=== PATIENT | male | born 1965 | race Caucasian/White ===

== ENCOUNTER 2017-01-27 11:52 | Emergency (ER) | payer BC ==
[2017-01-27] MEDS ORDERED: Ketorolac 60 MG/2 ML SDV IM ONE (12:17)
[2017-01-27] MEDS ORDERED: Sodium Chloride 0.9% 10 ML Syringe FLUSH PRN (12:28)
[2017-01-27] MEDS ORDERED: Ondansetron 4 MG/2 ML SDV IVPUSH ONE (12:28)
--- NOTE | 2017-01-27 13:36 | EDM.PDOC ---
ED HPI GENERAL MEDICAL PROBLEM - General Chief Complaint: Flank Pain Stated Complaint: SEVERE RIGHT FLANK PAIN Time Seen by Provider: 01/27/17 13:03 Source of Information: Reports: Patient, Family, RN Notes Reviewed History Limitations: Reports: No Limitations - History of Present Illness INITIAL COMMENTS - FREE TEXT/NARRATIVE: 51-year-old gentleman presents emergency department today complaint of right flank pain, he recently underwent CT scan 3 days prior which shows punctate stones in the right kidney nonobstructing with an enlarged head of the pancreas of unclear etiology, also of note proximally 2 weeks ago presented to his primary care with jaundice and brown colored urine workup revealed a normal CBC , bilirubin elevated at 11 and markedly elevated liver enzymes hepatitis B and a were negative remainder the panel is pending Right Flank Pain Score (Numeric/FACES): 9 - Related Data Allergies Allergy/AdvReac Type Severity Reaction Status Date / Time No Known Allergies Allergy Verified 01/27/17 12:08 Home Meds: Home Meds Multivitamin [Multi-Vitamin Daily] 1 each PO DAILY 04/04/13 [History] Past Medical History Gastrointestinal History: Reports: Other (See Below) Other Gastrointestinal History: uclerative colitis Genitourinary History: Reports: Renal Calculus Other Genitourinary History: 1992 - Past Surgical History GI Surgical History: Reports: Colonoscopy, Other (See Below) Other GI Surgeries/Procedures: COLON REMOVAL 2013. J pouch Social & Family History - Tobacco Use Smoking Status *Q: Never Smoker - Caffeine Use Caffeine Use: Reports: None - Alcohol Use Days Per Week of Alcohol Use: 0 - Recreational Drug Use Recreational Drug Use: No ED ROS GENERAL - Review of Systems Review Of Systems: See Below Constitutional: Reports: No Symptoms HEENT: Reports: No Symptoms Respiratory: Reports: No Symptoms Cardiovascular: Reports: No Symptoms GI/Abdominal: Reports: Nausea, Vomiting : Reports: Flank Pain, Other (Brown colored urine) Musculoskeletal: Reports: No Symptoms Skin: Reports: Jaundice ED EXAM, GI/ABD - Physical Exam Exam: See Below Exam Limited By: No Limitations General Appearance: Alert, WD/WN, No Apparent Distress Eyes: Bilateral: Normal Appearance (Yellow sclera) Ears: Normal External Exam, Normal Canal, Hearing Grossly Normal, Normal TMs Nose: Normal Inspection, Normal Mucosa, No Blood Throat/Mouth: Normal Inspection, Normal Lips, Normal Teeth, Normal Gums, Normal Oropharynx, Normal Voice, No Airway Compromise Head: Atraumatic, Normocephalic Neck: Normal Inspection, Supple, Non-Tender, Full Range of Motion Respiratory/Chest: No Respiratory Distress, Lungs Clear, Normal Breath Sounds, No Accessory Muscle Use, Chest Non-Tender Cardiovascular: Regular Rate, Rhythm, No Murmur GI/Abdominal Exam: Soft, Non-Tender Skin Exam: Jaundice Course - Vital Signs Last Recorded V/S: Last Vital Signs Temp 94.1 F L 01/27/17 12:10 Pulse 70 01/27/17 13:33 Resp 16 01/27/17 13:33 BP 123/74 01/27/17 13:33 Pulse Ox 100 01/27/17 13:33 - Orders/Labs/Meds Orders: Active Orders 24 hr Category Date Time Status Peripheral IV Care [RC] . DIRECTED Care 01/27/17 12:28 Active HEPATITIS C ANTIBODY [REF] Stat Lab 01/27/17 14:53 Ordered MONONUCLEOSIS SCREEN [CHEM] Stat Lab 01/27/17 14:53 Ordered Iopamidol [Isovue-300 (61%)] Med 01/27/17 14:03 Active 100 ml IV . DIRECTED PRN Sodium Chloride 0.9% [Normal Saline] 1,000 ml Med 01/27/17 13:45 Active IV ASDIRECTED Sodium Chloride 0.9% [Normal Saline] 77 ml Med 01/27/17 14:15 Active IV ASDIRECTED Sodium Chloride 0.9% [Saline Flush] Med 01/27/17 12:28 Active 10 ml FLUSH ASDIRECTED PRN Peripheral IV Insertion Adult [OM.PC] Urgent Oth 01/27/17 12:28 Ordered Medication Orders Sodium Chloride (Normal Saline) 1,000 mls @ 500 mls/hr IV ASDIRECTED CHAD Last Admin: 01/27/17 13:39 Dose: 500 mls/hr Sodium Chloride (Normal Saline) 77 mls @ 3.5 mls/sec IV ASDIRECTED CHAD Last Admin: 01/27/17 14:06 Dose: 3.5 mls/sec Iopamidol (Isovue-300 (61%)) 100 ml IV . DIRECTED PRN PRN Reason: RADIOLOGY EXAM Stop: 01/28/17 14:04 Last Admin: 01/27/17 14:06 Dose: 100 ml Sodium Chloride (Saline Flush) 10 ml FLUSH ASDIRECTED PRN PRN Reason: Keep Vein Open Last Admin: 01/27/17 13:39 Dose: 10 ml Labs: Laboratory Tests 01/27/17 01/27/17 01/27/17 Range/Units 12:23 13:41 13:41 WBC 6.1 (4.5-11.0) K/uL RBC 4.30 (4.30-5.90) M/uL Hgb 13.1 (12.0-15.0) g/dL Hct 40.1 (40.0-54.0) % MCV 93 (80-98) fL MCH 31 (27-31) pg MCHC 33 (32-36) % Plt Count 342 (150-400) K/uL Neut % (Auto) 44 (36-66) % Lymph % (Auto) 17 L (24-44) % [place] % (Auto) 20 H (2-6) % Eos % (Auto) 16 H (2-4) % Baso % (Auto) 3 H (0-1) % PT (9.5-12.0) sec INR (0.80-1.20) Sodium 136 L (140-148) mmol/L Potassium 4.4 (3.6-5.2) mmol/L Chloride 102 (100-108) mmol/L Carbon Dioxide 29 (21-32) mmol/L Anion Gap 9.4 (5.0-14.0) mmol/L BUN 11 (7-18) mg/dL Creatinine 1.1 (0.8-1.3) mg/dL Est Cr Clr Drug Dosing 78.67 mL/min Estimated GFR (MDRD) > 60 (>60) Glucose 91 (74-106) mg/dL Calcium 9.0 (8.5-10.1) mg/dL Total Bilirubin 6.9 H (0.2-1.0) mg/dL AST 629 H (15-37) U/L ALT 1762 H (12-78) U/L Alkaline Phosphatase 395 H (46-116) U/L Total Protein 7.2 (6.4-8.2) g/dL Albumin 3.0 L (3.4-5.0) g/dL Globulin 4.2 H (2.3-3.5) g/dL Albumin/Globulin Ratio 0.7 L (1.2-2.2) Urine Color Yellow Urine Appearance Cloudy Urine pH 5.0 (4.5-8.0) Ur Specific [place] 1.025 (1.008-1.030) Urine Protein Trace (NEGATIVE) mg/dL Urine Glucose (UA) Normal (NEGATIVE) mg/dL Urine Ketones Negative (NEGATIVE) mg/dL Urine Occult Blood Negative (NEGATIVE) Urine Nitrite Negative (NEGAITVE) Urine Bilirubin Moderate (NEGATIVE) Urine Urobilinogen 1 (NORMAL) mg/dL Ur Leukocyte Esterase Small (NEGATIVE) Urine RBC 0-5 (0-5) Urine WBC 0-5 (0-5) Ur Epithelial Cells Not seen Amorphous Sediment Rare Urine Bacteria Rare Urine Mucus Rare Urine Other See note 01/27/17 Range/Units 13:41 WBC (4.5-11.0) K/uL RBC (4.30-5.90) M/uL Hgb (12.0-15.0) g/dL Hct (40.0-54.0) % MCV (80-98) fL MCH (27-31) pg MCHC (32-36) % Plt Count (150-400) K/uL Neut % (Auto) (36-66) % Lymph % (Auto) (24-44) % [place] % (Auto) (2-6) % Eos % (Auto) (2-4) % Baso % (Auto) (0-1) % PT 12.3 H (9.5-12.0) sec INR 1.14 (0.80-1.20) Sodium (140-148) mmol/L Potassium (3.6-5.2) mmol/L Chloride (100-108) mmol/L Carbon Dioxide (21-32) mmol/L Anion Gap (5.0-14.0) mmol/L BUN (7-18) mg/dL Creatinine (0.8-1.3) mg/dL Est Cr Clr Drug Dosing mL/min Estimated GFR (MDRD) (>60) Glucose (74-106) mg/dL Calcium (8.5-10.1) mg/dL Total Bilirubin (0.2-1.0) mg/dL AST (15-37) U/L ALT (12-78) U/L Alkaline Phosphatase (46-116) U/L Total Protein (6.4-8.2) g/dL Albumin (3.4-5.0) g/dL Globulin (2.3-3.5) g/dL Albumin/Globulin Ratio (1.2-2.2) Urine Color Urine Appearance Urine pH (4.5-8.0) Ur Specific [place] (1.008-1.030) Urine Protein (NEGATIVE) mg/dL Urine Glucose (UA) (NEGATIVE) mg/dL Urine Ketones (NEGATIVE) mg/dL Urine Occult Blood (NEGATIVE) Urine Nitrite (NEGAITVE) Urine Bilirubin (NEGATIVE) Urine Urobilinogen (NORMAL) mg/dL Ur Leukocyte Esterase (NEGATIVE) Urine RBC (0-5) Urine WBC (0-5) Ur Epithelial Cells Amorphous Sediment Urine Bacteria Urine Mucus Urine Other Meds: Medications Generic Name Dose Route Start Last Admin Trade Name Vikki PRN Reason Stop Dose Admin Sodium Chloride 1,000 mls @ 500 mls/hr 01/27/17 13:45 01/27/17 13:39 Normal Saline IV 500 mls/hr ASDIRECTED CHAD Administration Sodium Chloride 77 mls @ 3.5 mls/sec 01/27/17 14:15 01/27/17 14:06 Normal Saline IV 3.5 mls/sec ASDIRECTED CHAD Administration Iopamidol 100 ml 01/27/17 14:03 01/27/17 14:06 Isovue-300 (61%) IV 01/28/17 14:04 100 ml . DIRECTED PRN Administration RADIOLOGY EXAM Sodium Chloride 10 ml 01/27/17 12:28 01/27/17 13:39 Saline Flush FLUSH 10 ml ASDIRECTED PRN Administration Keep Vein Open Discontinued Medications Generic Name Dose Route Start Last Admin Trade Name Freq PRN Reason Stop Dose Admin Hydromorphone HCl 0.5 mg 01/27/17 14:54 Dilaudid IVPUSH 01/27/17 14:55 ONETIME ONE Ketorolac Tromethamine 60 mg 01/27/17 12:17 01/27/17 12:25 Toradol IM 01/27/17 12:18 60 mg ONETIME ONE Administration Ondansetron HCl 4 mg 01/27/17 12:28 01/27/17 12:43 Zofran IVPUSH 01/27/17 12:29 4 mg ONETIME ONE Administration Departure - Departure Time of Disposition: 15:00 Disposition: Home, Self-Care 01 Condition: Good Clinical Impression: Right flank pain - Discharge Information Referrals: PCP,None [Primary Care Provider] - Forms: ED Department Discharge Additional Instructions: Use Toradol as needed for pain control, use hydrocodone as needed for breakthrough pain please keep your follow-up appointment with Basia Neo on February 03 for further evaluation, call return to the emergency department worsening of symptoms - My Orders Last 24 Hours: My Active Orders 01/27/17 12:28 Peripheral IV Care [RC] . DIRECTED Sodium Chloride 0.9% [Saline Flush] 10 ml FLUSH ASDIRECTED PRN Peripheral IV Insertion Adult [OM.PC] Urgent 01/27/17 13:45 Sodium Chloride 0.9% [Normal Saline] 1,000 ml IV ASDIRECTED 01/27/17 14:03 Iopamidol [Isovue-300 (61%)] 100 ml IV . DIRECTED PRN 01/27/17 14:15 Sodium Chloride 0.9% [Normal Saline] 77 ml IV ASDIRECTED 01/27/17 14:53 HEPATITIS C ANTIBODY [REF] Stat MONONUCLEOSIS SCREEN [CHEM] Stat - Assessment/Plan Last 24 Hours: My Active Orders 01/27/17 12:28 Peripheral IV Care [RC] . DIRECTED Sodium Chloride 0.9% [Saline Flush] 10 ml FLUSH ASDIRECTED PRN Peripheral IV Insertion Adult [OM.PC] Urgent 01/27/17 13:45 Sodium Chloride 0.9% [Normal Saline] 1,000 ml IV ASDIRECTED 01/27/17 14:03 Iopamidol [Isovue-300 (61%)] 100 ml IV . DIRECTED PRN 01/27/17 14:15 Sodium Chloride 0.9% [Normal Saline] 77 ml IV ASDIRECTED 01/27/17 14:53 HEPATITIS C ANTIBODY [REF] Stat MONONUCLEOSIS SCREEN [CHEM] Stat Plan: Assessment Acuity = acute Site and laterality = jaundice, with right-sided flank pain Etiology = [jaundice of unclear etiology right sided flank pain possibly related to nephrolithiasis right side Manifestations = none Location of injury = Home Lab values = total bilirubin elevated 6.9 consistent hyperbilirubinemia AST elevated 624 AO T elevated 1762 consistent with elevated liver enzymes alkaline phosphatase elevated 395 albumin low at 3.0 consistent with hypoalbuminemia urinalysis reveals moderate bilirubin CT scan of the pancreas shows mildly enlarged head but no definite abnormality noted Plan I did discussed case with his primary care team as well as review labs and CT scan results with him plan is to check a Monospot and hepatitis C he will follow -up with his primary care team in 1 week he was given pain medication at Toradol 10 mg by mouth 3 times a day when necessary total #20, and hydrocodone 5 /325 one tab by mouth 3 times a day when necessary total #10 Patient was in agreement with the plan all questions were answered, they were instructed to return to the emergency department or call for worsening symptoms. This note was dictated using [employer] voice recognition software please call with any questions.
[2017-01-27] MEDS ORDERED: Sodium Chloride 0.9% 1,000 ML IV SCH (13:45)
[2017-01-27] MEDS ORDERED: Iopamidol 612 MG/ML 100 ML Bottle IV PRN (14:03)
--- NOTE | 2017-01-27 14:27 | CT ---
Abdomen w wo Cont Total DLP 319 mGycm. INDICATION: Head of pancreas. COMPARISON: CT 01/24/2017. FINDINGS: Enlargement of the pancreatic head, but no definitive evidence for pancreatic mass. Mild pe riportal edema is nonspecific. No adenopathy. No worrisome osseous lesions. Exam otherwise unremarkab le. IMPRESSION: Enlargement of the pancreatic head, but no definitive evidence for pancreatic mass. Mild periportal edema is nonspecific.
[2017-01-27] MEDS ORDERED: HYDROmorphone 0.5 MG/0.5 ML Syringe IVPUSH ONE (14:54)
== END 2017-01-27 15:24 | disposition home or self-care (01) ==
LOC: JP.ED 11:52
DX: R10.9 Unspecified abdominal pain (principal); R17 Unspecified jaundice; N20.0 Calculus of kidney
CPT/HCPCS: 36415; 74170; 80053; 81001; 85025; 85610; 86308; 86803; 96361; 96372; 96374; 99284; J1170; J1885; J2405; J7030; J7040; J7050; Q9967

== ENCOUNTER 2018-04-13 06:19 | Day surgery (SDC) | payer OTHER ==
[2018-04-13] MEDS ORDERED: Acetaminophen 500 MG Tab PO ONE (06:30)
[2018-04-13] MEDS ORDERED: Lidocaine 1% with EPINEPHrine 1:100,000 50 ML MDV ONE (06:41)
[2018-04-13] MEDS ORDERED: Bupivacaine 0.5% 50 ML MDV ONE (06:41)
[2018-04-13] MEDS ORDERED: Dextrose 5%-Lactated Ringers 1,000 ML IV SCH (07:00)
[2018-04-13] MEDS ORDERED: Propofol 200 MG/20 ML SDV ONE ×3 (07:03→08:30)
[2018-04-13] MEDS ORDERED: fentaNYL 100 MCG/2 ML SDV ONE (07:03)
[2018-04-13] MEDS ORDERED: Midazolam 1 MG/ML 2 ML SDV ONE (07:03)
[2018-04-13] MEDS ORDERED: ceFAZolin 2 GM in Premix Bag 1 BAG IV ONE (07:45)
[2018-04-13] MEDS ORDERED: Ketorolac 60 MG/2 ML SDV IM ONE (09:17)
--- NOTE | 2018-04-17 11:15 | OR ---
DATE OF PROCEDURE: 04/13/2018 PREOPERATIVE DIAGNOSIS: Symptomatic left varicocele. POSTOPERATIVE DIAGNOSES: 1. Symptomatic left varicocele. 2. Small direct left inguinal hernia. 3. Left ilioinguinal nerve and genital branch of genitofemoral nerve at risk for scar entrapment. PROCEDURES: Left inguinal exploration with: 1. Varicocelectomy with concurrent repair of direct left inguinal hernia (28718). 2. Excision of a portion of the genital branch of the genitofemoral nerve (39270). 3. Excision of portion of left ilioinguinal nerve (22918). ANESTHESIA: Local plus IV sedation. ASSISTANTS: Zoraida Curran PA-C, and PEARL Reyes INDICATIONS FOR PROCEDURE: This is a 52-year-old male presenting with symptomatic left varicocele. The plan was to proceed with a varicocelectomy. To minimize problems with postoperative pain, we would also most likely plan to divide the genital branch of the genitofemoral nerve along with the ilioinguinal nerve on that side which would decrease the likelihood of him having persistent pain postoperatively, and he is aware that this would result in an area of some anesthesia in the scrotum and in the area around the inguinal incision. The potential risks otherwise including bleeding, infection, ischemia to the testicle, chronic pain persisting postoperatively were all reviewed, and the patient wishes to proceed. DETAILS OF PROCEDURE: The patient was taken to the operating room and after IV sedation was administered, the abdomen and groin areas were prepped and draped. The left inguinal area was then anesthetized with 1% lidocaine mixed with Marcaine. A standard left inguinal incision was made and carried down through the skin and subcutaneous tissue and through the external oblique aponeurosis. The cord structures were noted to be somewhat boggy and had quite distended venous plexus. Upon elevation of the cord structures, the patient was also noted to have a small direct inguinal hernia. At this point, the cremasteric muscle fibers were divided. The vas and the testicular artery were identified, the latter being confirmed by means of Doppler exam. The venous branches at the level of the internal ring were then sequentially divided and tied with 4-0 Vicryl ties. At that point, there appeared to be no further venous branches noted. The cremasteric vein at the external ring was then also identified and likewise divided and tied with 4-0 Vicryl ties. What appeared to be the genital branch of the genitofemoral nerve could be then identified in the posterior aspect of the cord structures. A portion of this was excised, as was the ilioinguinal nerve; these being accomplished with electrocautery. At this point, the size of the inguinal hernia led us to decide repair of this with a Bassini-type repair rather than mesh as the latter might be associated with some persistent pain leading to inflammatory response. The conjoint tendon was then sutured down to the shelving portion of the inguinal ligament beginning at the level of pubic tubercle and then extending laterally to the point where the cord structures were approximated reasonably snugly around the newly formed internal ring. At that point, no further problems were noted. The external oblique aponeurosis was approximated with some 4-0 Vicryl stitch as was the Muriel's fascia, and the skin closed with 4-0 Vicryl subcuticular stitch. Dressing was applied. The patient was taken to the recovery room in satisfactory condition. Physician payroll assistant, Zoradia Curran, played an essential role in assisting in this case, helping to position the patient and retract structures as needed as well as suturing and cutting sutures when indicated. Her presence improved patient safety and decreased the operative time. Paulo Boland MD /[id number]
== END 2018-04-13 11:26 | disposition home or self-care (01) ==
LOC: JP.SDS 06:19
PROVIDERS: ATTEND Surgery
DX: I86.1 Scrotal varices (principal); K40.90 Unilateral inguinal hernia, without obstruction or gangrene, not specified as recurrent; G57.82 Other specified mononeuropathies of left lower limb
CPT/HCPCS: 55540; 64790; A9270; J0690; J1885; J2250; J2704; J3010; J3490; J7042

== ENCOUNTER 2018-09-13 09:17 | Emergency (ER) | payer OTHER ==
--- NOTE | 2018-09-13 10:07 | EDM.PDOC ---
ED HPI GENERAL MEDICAL PROBLEM - General Chief Complaint: General Stated Complaint: HEAVINESS IN CHEST, SOB Time Seen by Provider: 09/13/18 09:50 Source of Information: Reports: Patient, Old Records, RN History Limitations: Reports: No Limitations - History of Present Illness INITIAL COMMENTS - FREE TEXT/NARRATIVE: 53 yo male presents with exertional chest tightness over the past week or so. He has no hx of CAD, but his mother developed heart dz at about age 70. He is not aware of his cholesterol status. He is a never smoker and has no diabetes. He does not have uncontrolled HTN. In addition, he has a hx of ulcerative colitis and has had his colon removed. Over the past 3+ weeks he has had persistent gassiness, bloating, loose stools, and decreased appetite. He has noticed about a 17# weight loss over this interval. No black or bloody stools. No nausea or vomiting. In the beginning he thought he had a virus. Onset: Gradual Onset Date: 08/21/18 Duration: Week(s): (3+), Getting Worse Location: Reports: Chest, Abdomen Quality: Reports: Pressure (mild chest pressure mainly with exertion. ) Severity: Mild Improves with: Reports: Rest Worsens with: Reports: Movement (exertion) Context: Reports: Other (see HPI) Associated Symptoms: Reports: Chest Pain (mild exertional tightness), Loss of Appetite, Other (weight loss). 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: Reports: Other (see below) (none) chest Pain Score (Numeric/FACES): 1 - Related Data Allergies Allergy/AdvReac Type Severity Reaction Status Date / Time No Known Allergies Allergy Verified 09/13/18 09:25 Home Meds: Home Meds Multivitamin [Multi-Vitamin Daily] 1 each PO DAILY 04/04/13 [History] Ursodiol 500 mg PO BID 04/11/18 [History] Past Medical History HEENT History: Reports: Impaired Vision Gastrointestinal History: Reports: Other (See Below) Other Gastrointestinal History: uclerative colitis Genitourinary History: Reports: Renal Calculus Other Genitourinary History: 1992 - Infectious Disease History Infectious Disease History: Reports: Chicken Pox - Past Surgical History GI Surgical History: Reports: Colonoscopy, Other (See Below) Other GI Surgeries/Procedures: COLON REMOVAL 2014 liver PSC. J pouch Social & Family History - Family History Family Medical History: Noncontributory - Tobacco Use Smoking Status *Q: Never Smoker Second Hand Smoke Exposure: No - Caffeine Use Caffeine Use: Reports: Tea - Recreational Drug Use Recreational Drug Use: No ED ROS GENERAL - Review of Systems Review Of Systems: See Below Constitutional: Reports: Decreased Appetite, Weight Loss HEENT: Reports: No Symptoms Respiratory: Reports: No Symptoms Cardiovascular: Reports: Chest Pain (mild, exertional) Endocrine: Reports: No Symptoms GI/Abdominal: Reports: Anorexia, Diarrhea, Decreased Appetite, Distension (at times). Denies: Black Stool, Bloody Stool, Constipation, Melena, Nausea, Vomiting : Reports: No Symptoms Musculoskeletal: Reports: No Symptoms Skin: Reports: No Symptoms Neurological: Reports: No Symptoms Psychiatric: Reports: No Symptoms ED EXAM, GENERAL - Physical Exam Exam: See Below Exam Limited By: No Limitations General Appearance: Alert, WD/WN, No Apparent Distress, Thin Eye Exam: Bilateral Eye: Normal Inspection Ears: Normal External Exam, Normal Canal, Hearing Grossly Normal, Normal TMs Ear Exam: Bilateral Ear: Auricle Normal, Canal Normal, TM normal Nose: Normal Inspection, No Blood Throat/Mouth: Normal Inspection, Normal Lips, Normal Oropharynx, Normal Voice, No Airway Compromise Head: Atraumatic, Normocephalic Neck: Normal Inspection Respiratory/Chest: No Respiratory Distress, Lungs Clear, Normal Breath Sounds, No Accessory Muscle Use Cardiovascular: Regular Rate, Rhythm, No Edema GI/Abdominal: Normal Bowel Sounds, Soft, Non-Tender, No Distention, Other (no epigastric pain) Back Exam: Normal Inspection. No: CVA Tenderness (R), CVA Tenderness (L) Extremities: Normal Inspection, Normal Range of Motion, Non-Tender, No Pedal Edema Neurological: Alert, Oriented, CN II-XII Intact, Normal Cognition, No Motor/ Sensory Deficits Psychiatric: Normal Affect, Normal Mood Skin Exam: Warm, Dry, Intact, Normal Color, No Rash, Other (2 cm lipoma or sebacious cyst mid back area.) EKG INTERPRETATION EKG Date: 09/13/18 Time: 10:35 Rhythm: NSR Rate (Beats/Min): 69 [place]: Normal P-Wave: Present QRS: Normal ST-T: Normal QT: Normal Comparison: NA - No Prior EKG Course - Vital Signs Last Recorded V/S: Last Vital Signs Temp 36 C 09/13/18 10:43 Pulse 74 09/13/18 10:43 Resp 14 09/13/18 10:43 BP 129/81 09/13/18 10:43 Pulse Ox 100 09/13/18 10:43 - Orders/Labs/Meds Orders: Active Orders 24 hr Category Date Time Status EKG Documentation Completion [RC] ASDIRECTED Care 09/13/18 10:01 Active UA W/MICROSCOPIC [URIN] Stat Lab 09/13/18 10:01 Ordered EKG 12 Lead [EK] Routine Ther 09/13/18 10:01 Ordered Labs: Laboratory Tests 09/13/18 09/13/18 Range/Units 10:13 10:13 WBC 6.3 (4.5-11.0) K/uL RBC 5.54 (4.30-5.90) M/uL Hgb 16.7 H D (12.0-15.0) g/dL Hct 48.9 (40.0-54.0) % MCV 88 (80-98) fL MCH 30 (27-31) pg MCHC 34 (32-36) % Plt Count 295 (150-400) K/uL Sodium 134 L (140-148) mmol/L Potassium 5.0 (3.6-5.2) mmol/L Chloride 98 L (100-108) mmol/L Carbon Dioxide 29 (21-32) mmol/L Anion Gap 12.0 (5.0-14.0) mmol/L BUN 13 (7-18) mg/dL Creatinine 1.3 (0.8-1.3) mg/dL Est Cr Clr Drug Dosing 59.45 mL/min Estimated GFR (MDRD) 58 L (>60) Glucose 79 (74-106) mg/dL Calcium 9.3 (8.5-10.1) mg/dL Total Bilirubin 0.8 D (0.2-1.0) mg/dL AST 36 D (15-37) U/L ALT 49 D (12-78) U/L Alkaline Phosphatase 70 D (46-116) U/L Troponin I < 0.017 (0.000-0.056) ng/mL C-Reactive Protein < 0.05 (0.0-0.3) mg/dL Total Protein 7.6 (6.4-8.2) g/dL Albumin 4.0 (3.4-5.0) g/dL Globulin 3.6 H (2.3-3.5) g/dL Albumin/Globulin Ratio 1.1 L (1.2-2.2) Departure - Departure Time of Disposition: 10:48 Disposition: Home, Self-Care 01 Condition: Fair Clinical Impression: Exertional chest pain, Weight loss - Discharge Information *PRESCRIPTION DRUG MONITORING PROGRAM REVIEWED*: No *COPY OF PRESCRIPTION DRUG MONITORING REPORT IN PATIENT EDITH: No Instructions: Nonspecific Chest Pain, [id number] Referrals: Clarisse Ferrer MD [Primary Care Provider] - Forms: ED Department Discharge Additional Instructions: A referral to cardiology will be made on your behalf, follow up with them for further evaluation of your exertional chest tightness. F/U with your study lead regarding your weight loss and GI sx's. Return as needed. - My Orders Last 24 Hours: My Active Orders 09/13/18 10:01 EKG Documentation Completion [RC] ASDIRECTED UA W/MICROSCOPIC [URIN] Stat EKG 12 Lead [EK] Routine - Assessment/Plan Last 24 Hours: My Active Orders 09/13/18 10:01 EKG Documentation Completion [RC] ASDIRECTED UA W/MICROSCOPIC [URIN] Stat EKG 12 Lead [EK] Routine
== END 2018-09-13 11:06 | disposition home or self-care (01) ==
LOC: JP.ED 09:17
DX: R07.89 Other chest pain (principal); R63.4 Abnormal weight loss; Z79.899 Other long term (current) drug therapy; Z87.442 Personal history of urinary calculi
CPT/HCPCS: 36415; 80053; 84484; 85027; 86140; 93005; 99285-25